=== PATIENT | male | born 1940 | race Caucasian/White ===

== ENCOUNTER → 2016-10-10 | Outpatient (CLI) | payer MEDICARE | END | disposition home or self-care (01) | LOC: PCVCCLINIC 14:16 | PROVIDERS: ATTEND Internal Medicine Cardiovascular Disease | DX: I10 Essential (primary) hypertension (principal); E78.5 Hyperlipidemia, unspecified; I34.1 Nonrheumatic mitral (valve) prolapse; I48.91 Unspecified atrial fibrillation; I77.9 Disorder of arteries and arterioles, unspecified; Z86.73 Personal history of transient ischemic attack (TIA), and cerebral infarction without residual deficits | CPT/HCPCS: 80061; 93005; G0463 ==

== ENCOUNTER → 2016-10-19 | Outpatient (CLI) | payer MEDICARE ==
[~2016-10-19] MED LIST: REGADENOSON 0.4 MG/5 ML DISP.SYRIN. IV ONE
== END | disposition home or self-care (01) ==
LOC: PCVCIMAG 07:55
PROVIDERS: ATTEND Internal Medicine Cardiovascular Disease
DX: I08.3 Combined rheumatic disorders of mitral, aortic and tricuspid valves (principal); I48.0 Paroxysmal atrial fibrillation; R00.2 Palpitations; I63.9 Cerebral infarction, unspecified
CPT/HCPCS: 78452; 93017; 93306; A9500; J2785

== ENCOUNTER → 2016-11-02 | Outpatient (CLI) | payer MEDICARE | END | disposition home or self-care (01) | LOC: PCVCCLINIC 11:31 | PROVIDERS: ATTEND Internal Medicine Cardiovascular Disease | DX: I77.9 Disorder of arteries and arterioles, unspecified (principal); E78.00 Pure hypercholesterolemia, unspecified; I10 Essential (primary) hypertension; I63.9 Cerebral infarction, unspecified | CPT/HCPCS: 36415 ==

== ENCOUNTER → 2018-05-20 | Outpatient (CLI) | payer MEDICARE ==
--- NOTE | 2018-05-20 15:15 | PCVCIMAG ---
APPROVED REPORT Study performed: 05/20/2018 13:41:35 EXAM: Comprehensive 2D, Doppler, and color-flow Echocardiogram Patient Location: Echo lab Status: routine BSA: 1.71 HR: 55 bpmBP: 152/84 mmHg Rhythm: Bradycardia Other Information Study Quality: Adequate Risk Factors: Cardiac Risk Factors: HTN Indications Mitral Valve Prolapse Atrial Fibrillation 2D Dimensions LVEF(%): 67.15 (>50%) IVSd: 11.29 (7-11mm) LVDd: 44.83 mm PWd: 9.84 (7-11mm)Ascending Ao: 35.15 (22-36mm) LVDs: 28.21 (25-40mm) Left Atrium: 38.94 (27-40mm) Aortic Root: 30.70 mm LV Single Plane 4CH: 63.08 % LV Single Plane 2CH: 64.58 %Rice's LVEF: 63.83 % Biplane EF: 63.5 % Volumes Left Atrial Volume (Systole) Single Plane 4CH: 70.68 mLSingle Plane 2CH: 96.32 mL LA ESV Index: 52.00 mL/m2 Aortic Valve AoV Peak David.: 1.50 m/s AO Peak Gr.: 9.04 mmHgLVOT Max P.37 mmHg LVOT Max V: 0.92 m/s AI Vmax: 4.23 m/s AI Sierra: 2.20 m/s2 AI PHT: 558.10 ms Mitral Valve E/A Ratio: 1.3 MV Decel. Time: 281.49 ms MV E Max David.: 0.79 m/s MV A David.: 0.62 m/s IVRT: 121.11 ms Pulmonary Valve PV Peak David.: 0.66 m/sPV Peak Gr.: 1.75 mmHg Pulmonary Vein P Vein S: 0.31 m/sP Vein A: 0.30 m/s P Vein D: 0.56 m/sP Vein A Dur.: 131.5 msec P Vein S/D Ratio: 0.55 Tricuspid Valve TR Peak David.: 2.73 m/s TR Peak Gr.: 29.87 mmHg Left Ventricle The left ventricle is normal size. There is normal LV segmental wall motion. There is normal left ventricular wall thickness. Left ventricular systolic function is normal. The left ventricular ejection fraction is within the normal range. LVEF is 60-65%. Grade I - abnormal relaxation pattern. Right Ventricle The right ventricle is normal size. The right ventricular systolic function is normal. Atria Left atrium is moderately dilated. The right atrium size is normal. Aortic Valve Mild aortic valve sclerosis. Mild aortic regurgitation. There is no aortic valvular stenosis. 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 Moderate mitral regurgitation. No evidence of mitral valve stenosis. Tricuspid Valve The tricuspid valve is normal in structure. Mild to moderate tricuspid regurgitation with PAP of 40 mmHg. Pulmonic Valve The pulmonary valve is normal in structure. Trace pulmonic regurgitation. Great Vessels The aortic root is normal in size. IVC is dilated 2.6 cm and collapses >50% with inspiration. Pericardium There is no pericardial effusion. There is no pleural effusion. <Conclusion> The left ventricle is normal size. LVEF is 60-65%. Grade I - abnormal relaxation pattern. The right ventricle is normal size. Left atrium is moderately dilated. Mild aortic valve sclerosis. Mild aortic regurgitation. There is no aortic valvular stenosis. Moderate mitral regurgitation. Mild to moderate tricuspid regurgitation with PAP of 40 mmHg. The aortic root is normal in size. There is no pericardial effusion.
== END | disposition home or self-care (01) ==
LOC: PCVCIMAG 14:01
PROVIDERS: ATTEND Internal Medicine Cardiovascular Disease
DX: I08.3 Combined rheumatic disorders of mitral, aortic and tricuspid valves (principal); I48.0 Paroxysmal atrial fibrillation; I10 Essential (primary) hypertension; E78.5 Hyperlipidemia, unspecified; Z79.82 Long term (current) use of aspirin
CPT/HCPCS: 80061; 93005; 93306; G0463

== ENCOUNTER → 2018-10-03 | Outpatient (CLI) | payer MEDICARE | END | disposition home or self-care (01) | LOC: PCVCCLINIC 09:39 | PROVIDERS: ATTEND Internal Medicine Cardiovascular Disease | DX: I48.0 Paroxysmal atrial fibrillation (principal); I10 Essential (primary) hypertension; E78.00 Pure hypercholesterolemia, unspecified; I34.1 Nonrheumatic mitral (valve) prolapse; E78.5 Hyperlipidemia, unspecified | CPT/HCPCS: 36415; 80061; 93005; G0463 ==

== ENCOUNTER → 2019-05-01 | Outpatient (CLI) | payer MEDICARE ==
--- NOTE | 2019-05-04 09:21 | PCVCIMAG ---
APPROVED REPORT Study performed: 05/01/2019 09:56:17 Exam: Stress Echocardiogram Indication: parox a fib, htn, mitral prolapse, mitral regurgitation Patient Location: Echo lab Stress Nurse: Andreia Ren RN Status: routine Ht: 5 ft 7 in HR: 62 bpm BP: 122/80 mmHg Rhythm: NSR Procedure The patient underwent an Exercise Stress Test using the Avinash Protocol. Blood pressure, heart rate, and EKG were monitored. An Echocardiogram was performed by instructor adjunct surgical technician in four stages in quad fashion. At peak stress, four selected images were obtained and placed side by side with resting images for comparison. Stress Test Details Stress Test: Exercise stress testing was performed using a Avinash protocol. HR Resting HR: 62 bpmMax Heart Rate (APMHR): 143 bpm Max HR Achieved: 123 bpmTarget HR (85% APMHR): 121 bpm % of APMHR: 86 Recovery HR: 65 bpm HR response to stress: Normal HR response to stress BP Resting BP: 122/80 mmHg Max BP: 150/76 mmHg Recovery BP: 118/70 mmHg BP response to stress: Normal blood pressure response to stress. ECG Resting ECG: Sinus Rhythm Stress ECG: Sinus Rhythm ST Change: Normal Arrhythmia: frequent bigeminy and multifocal PVCs Recovery ECG: Sinus Rhythm Recovery ST Change: Normal Recovery Arrhythmia: A fib that resolved quickly Clinical Reason for Termination: Maximal effort Stress Symptoms: Dyspnea Exercise duration: 6 min 42 sec Highest Stage Achieved: Stage 3: 3.4 mph at 14% grade. Exercise capacity: 9.1 METs Overall Exercise Capacity for Age: Normal Scale: Sedentary Angina Score: None Pre-Stress Echo The resting Echocardiogram showed normal left ventricular contractility with an estimated Ejection Fraction of about 50-55%. Normal wall motion in all segments on baseline images. Post-Stress Echo The stress Echocardiogram showed normal left ventricular contractility with an estimated Ejection Fraction of about 60-65%. Normal augmentation of wall motion in all segments on post stress images. Clinical No clinical or ECG evidence for ischemia. Conclusion Clinical Response: Non-ischemic Exercise Capacity: Average Stress ECG Response: Non-ischemic Stress Echo Images: Non-ischemic The left ventricle is normal in size and wall thickness in both the rest and stress images. Mitral prolapse with moderate mitral regurgitation. Aortic sclerosis, no stenosis present. Other Information Study Quality: Adequate <Conclusion> The left ventricle is normal in size and wall thickness in both the rest and stress images. Mitral prolapse with moderate mitral regurgitation. Aortic sclerosis, no stenosis present.
== END | disposition home or self-care (01) ==
LOC: PCVCIMAG 11:39
PROVIDERS: ATTEND Internal Medicine Cardiovascular Disease
DX: I08.0 Rheumatic disorders of both mitral and aortic valves (principal); I48.0 Paroxysmal atrial fibrillation; I10 Essential (primary) hypertension
CPT/HCPCS: 93325; 93351